=== PATIENT | male | born 1975 | race Caucasian/White ===

== ENCOUNTER 2021-02-11 22:59 | Emergency (ER) | payer MEDICAID, SELFPAY ==
[2021-02-11 23:12] VITALS: BP 125/71; PULSE 82; RESP 16; TEMP 36.9; O2SAT 97; BMI 25.7
[2021-02-11 23:19] VITALS: RESP 16
--- NOTE | 2021-02-11 23:26 | PC.NURSE ---
pt removed his collar (Jared) notified
--- NOTE | 2021-02-11 23:48 | PC.NURSE ---
pt seen by multiple staff members walking around ED asking staff if they have his bags of marijuana. this nurse and other staff assured pt that we do not have any of possessions including bags of marijuana or cell phone. pt not easily redirected back to bed. charge nurse and security aware.
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
--- NOTE | 2021-02-12 00:08 | PC.NURSE ---
pt seen by provider, then seen by security restrepo from ED. pt did not recieve d/c paperwork charge nurse and MD aware
== END 2021-02-12 00:11 | disposition home or self-care (01) ==
PROVIDERS: Emergency Provider Internal Medicine
DX: Z04.1 Encounter for examination and observation following transport accident (principal); F19.10 Other psychoactive substance abuse, uncomplicated
CPT/HCPCS: 99281; 99284

== ENCOUNTER 2021-02-12 03:07 | Emergency (ER) | payer OTHER, MEDICAID, SELFPAY ==
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
[2021-02-12 03:43] VITALS: BP 112/67; PULSE 85; RESP 16; TEMP 36.6; O2SAT 98; BMI 25.7
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
[2021-02-12 04:13] LABS: MANUAL DIFF FLAG NO
[2021-02-12 04:14] LABS: Basophils Absolute Auto 0.1 X10*3/uL (0.0-0.2); Basophils Percent Auto 0.6 % (0-2); Eosinophils Absolute Auto 0.4 X10*3/uL (0.0-0.4); Hematocrit 44.3 % (42.0-52.0); Imm Gran Abs Auto 0.04 X10*3/uL (0.00-0.03); Imm Gran Pct Auto 0.3 % (0.0-0.4); Lymphocytes Absolute Auto 2.2 X10*3/uL (1.2-4.9); Lymphocytes Percent Auto 16.6 % (20-40); Mean Corpuscular HGB Conc 33.9 g/dl (31.0-36.0); Mean Corpuscular Hemoglobin 32.3 pg (27.0-33.0); Mean Corpuscular Volume 95.3 fL (80.0-98.0); Mean Platelet Volume 9.3 fL (9.4-12.4); Monocytes Absolute Auto 1.1 X10*3/uL (0.1-1.2); Monocytes Percent Auto 8.5 % (2-11); Neutrophils Absolute Auto 9.2 x10*3/uL (2.0-8.3); Platelet Count 272 X10*3/uL (160-400); Red Blood Count 4.65 X10*6/uL (4.60-5.80); Red Cell Distribution Width 12.2 % (11.0-16.0); White Blood Count 12.9 X10*3/uL (4.8-10.8)
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
[2021-02-12 04:32] LABS: Anion Gap 15 (12-20); Blood Urea Nitrogen 10 mg/dL (9-16); Calcium 9.1 mg/dL (8.4-10.2); Carbon Dioxide 24 mmol/L (22-29); Chloride 108 mmol/L (96-108); Creatinine Clr Calc Pharmacy 110.3; Estimated Glomerular Filt Rate > 60; Glucose Random 76 mg/dL (60-115); Potassium 3.7 mmol/L (3.3-5.1); Sodium 143 mmol/L (135-145)
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
== END 2021-02-12 07:29 | disposition home or self-care (01) ==
PROVIDERS: Emergency Provider Emergency Medicine
DX: F19.10 Other psychoactive substance abuse, uncomplicated (principal); S00.83XA Contusion of other part of head, initial encounter; V49.9XXA Car occupant (driver) (passenger) injured in unspecified traffic accident, initial encounter; Y93.89 Activity, other specified; Y92.410 Unspecified street and highway as the place of occurrence of the external cause; Y99.9 Unspecified external cause status
CPT/HCPCS: 36415; 70450; 72125; 80048; 85025; 99283; 99284